=== PATIENT | female | born 1955 | race Caucasian/White ===

== ENCOUNTER → 2016-10-15 | Outpatient (CLI) | payer SELFPAY ==
[~2016-10-15] MED LIST: LEVOTHYROXINE75 MCG PO; METOPROLOL TAR100 MG PO; PRAVASTATIN SOD40 MG PO; ZOLPIDEM TARTRA10 MG PO
== END | disposition home or self-care (01) ==
LOC: RAD 12:44
DX: M79.89 Other specified soft tissue disorders (principal)
CPT/HCPCS: 93971